=== PATIENT | female | born 1955 | race Caucasian/White ===

== ENCOUNTER 2023-11-05 07:16 | Emergency (ER) | payer OTHER ==
[2023-11-05 07:50] VITALS: BP 126/82; PULSE 108; RESP 18; TEMP 99.2; BMI 23.8
[2023-11-05] MEDS ORDERED: LORazepam 1 MG TABLET ONE (09:09)
[2023-11-05] MEDS ORDERED: ONDANSETRON 4 MG/2 ML VIAL ONE (09:10)
[2023-11-05] MEDS: ONDANSETRON 4 MG/2 ML VIAL IVPUSH ONE (09:34)
[2023-11-05] MEDS: LORazepam 2 MG TABLET PO ONE (09:34)
[2023-11-05] MEDS: LACTATED RINGERS SOLUTION 1,000 ML/1,000 ML INFUS.BAG IV STA (09:34)
[2023-11-05 09:40] LABS: BASO % 0.6 % (0-2.0); EOS % 0.5 % (0-4.5); HEMATOCRIT 42.9 % (32.4-45.2); HEMOGLOBIN 14.7 GM/dL (10.7-15.3); LYMPH % 16.9 % (8-40); MCH 32.9 pg (25.7-33.7); MCHC 34.3 g/dl (32.0-36.0); MEAN CELL VOLUME 95.8 fl (80-96); MEAN PLT VOLUME 7.8 fl (7.5-11.1); PLATELET COUNT 124 10^3/uL (134-434); RBC 4.48 M/mm3 (3.60-5.2); WHITE BLOOD COUNT 4.5 K/mm3 (4.0-10.0)
[2023-11-05 11:05] LABS: PH,URINE 6.5 (5.0-8.0); URINE APPEARANCE CLEAR; URINE BILIRUBIN NEGATIVE (NEGATIVE); URINE COLOR YELLOW; URINE GLUCOSE (UA) NEGATIVE (NEGATIVE); URINE KETONE TRACE (NEGATIVE); URINE LEUK ESTERASE NEGATIVE (NEGATIVE); URINE NITRITE NEGATIVE (NEGATIVE); URINE PROTEIN NEGATIVE (NEGATIVE); URINE UROBILINOGEN 0.2 mg/dL (0.2-1.0)
[2023-11-05 11:48] LABS: POTASSIUM 4.3 mmol/L (3.5-5.1)
[2023-11-05 11:52] LABS: ALBUMIN 3.4 g/dl (3.4-5.0); BLOOD UREA NITROGEN 10.2 mg/dL (7-18); CALCIUM 9.5 mg/dL (8.5-10.1); MAGNESIUM 1.8 mg/dL (1.8-2.4)
[2023-11-05 11:57] LABS: BILIRUBIN,TOTAL 2.2 mg/dL (0.2-1); TOT PROT 7.1 g/dl (6.4-8.2)
[2023-11-05 12:42] LABS: BILIRUBIN,DIRECT 0.8 mg/dL (0.0-0.2)
== END 2023-11-05 15:56 | disposition left against medical advice (07) ==
LOC: JER 07:16
PROC: 3E033GC Introduction of Other Therapeutic Substance into Peripheral Vein, Percutaneous Approach (ICD-10-PCS; principal; 2023-11-05)
PROC: 3E0337Z Introduction of Electrolytic and Water Balance Substance into Peripheral Vein, Percutaneous Approach (ICD-10-PCS; 2023-11-05)
DX: K70.10 Alcoholic hepatitis without ascites (principal); F10.930 Alcohol use, unspecified with withdrawal, uncomplicated; R53.1 Weakness; R53.81 Other malaise; F41.9 Anxiety disorder, unspecified; R25.1 Tremor, unspecified; R63.0 Anorexia; R11.2 Nausea with vomiting, unspecified; R10.31 Right lower quadrant pain
CPT/HCPCS: 36415; 76705-TC; 80053; 81003; 82248; 83690; 83735; 85025; 87086; 99284-25

== ENCOUNTER 2024-04-21 05:16 | Emergency (ER) | payer OTHER ==
[2024-04-21 05:26] VITALS: RESP 18; TEMP 98.1; BMI 23.1
[2024-04-21] MEDS: SODIUM CHLORIDE 0.9% 500 ML INFUS.BAG IV ONE (05:50)
[2024-04-21 06:24] LABS: BASO % 1.2 % (0-2.0); EOS % 1.2 % (0-4.5); HEMATOCRIT 46.6 % (32.4-45.2); HEMOGLOBIN 16.1 GM/dL (10.7-15.3); LYMPH % 30.1 % (8-40); MCH 33.7 pg (25.7-33.7); MCHC 34.6 g/dl (32.0-36.0); MEAN CELL VOLUME 97.5 fl (80-96); MEAN PLT VOLUME 7.3 fl (7.5-11.1); MONO % 11.3 % (3.8-10.2); NEUT % 56.2 % (42.8-82.8); PLATELET COUNT 260 10^3/uL (134-434); RBC 4.78 M/mm3 (3.60-5.2); RDW 13.9 % (11.6-15.6); WHITE BLOOD COUNT 4.1 K/mm3 (4.0-10.0)
[2024-04-21 06:28] VITALS: BP 125/79; PULSE 89
[2024-04-21 06:41] LABS: POTASSIUM 4.5 mmol/L (3.5-5.1)
[2024-04-21 06:42] LABS: CALCIUM 9.1 mg/dL (8.5-10.1)
[2024-04-21 06:43] LABS: ALBUMIN 3.4 g/dl (3.4-5.0); BLOOD UREA NITROGEN 7.4 mg/dL (7-18)
[2024-04-21 06:46] LABS: CREATININE 0.9 mg/dL (0.55-1.3)
[2024-04-21 06:47] LABS: BILIRUBIN,TOTAL 0.9 mg/dL (0.2-1); TOT PROT 7.3 g/dl (6.4-8.2)
[2024-04-21] MEDS ORDERED: chlordiazePOXIDE HCL 25 MG CAPSULE ONE (07:20)
[2024-04-21] MEDS: chlordiazePOXIDE HCL 25 MG CAPSULE PO ONE (07:22)
[2024-04-21 07:26] LABS: MAGNESIUM 2.2 mg/dL (1.8-2.4)
== END 2024-04-21 08:29 | disposition home or self-care (01) ==
LOC: JER 05:16
DX: R53.1 Weakness (principal); F10.129 Alcohol abuse with intoxication, unspecified; R63.0 Anorexia; R25.1 Tremor, unspecified; R11.0 Nausea; Y90.9 Presence of alcohol in blood, level not specified
CPT/HCPCS: 36415; 80053; 83735; 85025; 99283-25

== ENCOUNTER 2024-04-21 10:35 | Inpatient (IN) | payer OTHER ==
[2024-04-21 11:26] VITALS: BMI 23.3
[2024-04-21] MEDS ORDERED: chlordiazePOXIDE HCL 25 MG CAPSULE PO PRN (11:32)
[2024-04-21] MEDS ORDERED: ACETAMINOPHEN 325 MG TABLET (FP) PO PRN (11:35)
[2024-04-21] MEDS ORDERED: POLYETHYLENE GLYCOL (HEALTHYLAX) 3350 17 GM PACKET PO PRN (11:35)
[2024-04-21] MEDS ORDERED: MAG HYDROX/AL HYDROX/SIMETH 30 ML UNIT-DOSE CUP PO PRN (11:35)
[2024-04-21] MEDS ORDERED: guaiFENesin 600 MG TABLET.ER (FP) PO PRN (11:35)
[2024-04-21] MEDS ORDERED: IBUPROFEN 400 MG TABLET (FP) PO PRN (11:35)
[2024-04-21] MEDS ORDERED: DICYCLOMINE HCL 10 MG CAPSULE PO PRN (11:35)
[2024-04-21] MEDS ORDERED: BISMUTH SUBSALICYLATE 524 MG/30 ML PO PRN (11:35)
[2024-04-21] MEDS ORDERED: IBUPROFEN 600 MG TABLET (FP) PO PRN (11:35)
[2024-04-21] MEDS ORDERED: BENZONATATE 200 MG CAPSULE PO PRN (11:35)
[2024-04-21] MEDS ORDERED: P-EPHED 60MG/TRIPROLIDI 2.5MG TABLET PO PRN (11:35)
[2024-04-21] MEDS ORDERED: BENZOCAINE/MENTHOL (CHLORASEPTIC ) LOZENGE MM PRN (11:35)
[2024-04-21] MEDS ORDERED: MAGNESIUM HYDROX 2400MG/30ML ORAL SUSPENSION 30 ML CUP PO PRN (11:35)
[2024-04-21] MEDS ORDERED: ONDANSETRON *ODT* 4 MG TABLET SL PRN (11:35)
[2024-04-21] MEDS: chlordiazePOXIDE HCL 25 MG CAPSULE PO ONE (12:15)
[2024-04-21] MEDS: chlordiazePOXIDE HCL 25 MG CAPSULE PO SCH (17:20)
[2024-04-21] MEDS: hydrOXYzine PAMOATE 25 MG CAPSULE (FP) PO PRN (17:22)
[2024-04-21] MEDS: METHOCARBAMOL 500 MG TABLET PO PRN (22:55)
[2024-04-21] MEDS: MELATONIN 5 MG TABLETS PO SCH (22:55)
[2024-04-21] MEDS: THIAMINE 100 MG TABLET PO SCH (22:55)
[2024-04-22] MEDS: PRENATAL VITAMINS W/ FOLIC ACID TABLET (FP) PO SCH (10:18)
[2024-04-22] MEDS: LOPERAMIDE HCL 2 MG CAPSULE PO PRN (10:59)
[2024-04-22] MEDS ORDERED: LORazepam 1 MG TABLET PO PRN (16:41)
[2024-04-22] MEDS: LORazepam 2 MG TABLET PO SCH (17:31)
[2024-04-22] MEDS: NICOTINE POLACRILEX 2 MG GUM BUC PRN (20:08)
[2024-04-22 21:21] VITALS: BP 100/73; PULSE 112; RESP 18; TEMP 98.2
[2024-04-23] MEDS ORDERED: chlordiazePOXIDE HCL 25 MG CAPSULE PO SCH (05:00)
[2024-04-23] MEDS ORDERED: FLUTICASONE PROP 0.05% 16 GM NASAL SPRAY NS SCH (10:00)
[2024-04-24] MEDS ORDERED: chlordiazePOXIDE HCL 10 MG CAPSULE PO PRN
[2024-04-24] MEDS ORDERED: LORazepam 1 MG TABLET PO SCH (05:00)
[2024-04-24] MEDS ORDERED: chlordiazePOXIDE HCL 10 MG CAPSULE PO SCH (05:00)
[2024-04-25] MEDS ORDERED: chlordiazePOXIDE HCL 10 MG CAPSULE PO SCH (05:00)
[2024-04-25] MEDS ORDERED: LORazepam 0.5 MG TABLET PO SCH (05:00)
[2024-04-26] MEDS ORDERED: LORazepam 0.5 MG TABLET PO ONE (05:00)
[2024-04-26] MEDS ORDERED: chlordiazePOXIDE HCL 10 MG CAPSULE PO ONE (05:00)
== END 2024-04-22 21:23 | disposition left against medical advice (07) | DRG 894 ==
LOC: YASAS 10:35 → Y6N 12:02
PROVIDERS: ADMIT Allergy & Immunology; ATTEND Surgery
PROC: HZ2ZZZZ Detoxification Services for Substance Abuse Treatment (ICD-10-PCS; principal; 2024-04-21)
DX: F10.230 Alcohol dependence with withdrawal, uncomplicated (principal); K70.0 Alcoholic fatty liver
CPT/HCPCS: 80305; 80307

== ENCOUNTER 2024-05-26 04:56 | Emergency (ER) | payer OTHER ==
[2024-05-26 05:03] VITALS: BP 133/86; PULSE 109; RESP 18; TEMP 98.4; BMI 20.5
[2024-05-26] MEDS ORDERED: ONDANSETRON 4 MG/2 ML VIAL ONE (05:57)
[2024-05-26] MEDS: LACTATED RINGERS SOLUTION 1000 ML INFUS.BAG IV ONE (06:30)
[2024-05-26] MEDS: chlordiazePOXIDE HCL 25 MG CAPSULE PO ONE ×2 (06:30→09:53)
[2024-05-26] MEDS: ONDANSETRON 4 MG/2 ML VIAL IVPUSH ONE (06:30)
[2024-05-26] MEDS ORDERED: chlordiazePOXIDE HCL 25 MG CAPSULE ONE ×2 (06:32→09:40)
[2024-05-26 06:44] LABS: BASO % 0.7 % (0-2.0); EOS % 0.2 % (0-4.5); HEMATOCRIT 46.9 % (32.4-45.2); LYMPH % 15.4 % (8-40); MCH 33.3 pg (25.7-33.7); MEAN CELL VOLUME 97.8 fl (80-96); MEAN PLT VOLUME 7.8 fl (7.5-11.1); MONO % 7.6 % (3.8-10.2); NEUT % 76.1 % (42.8-82.8); PLATELET COUNT 153 10^3/uL (134-434); RDW 13.4 % (11.6-15.6); WHITE BLOOD COUNT 5.4 K/mm3 (4.0-10.0)
[2024-05-26 07:00] LABS: POTASSIUM 4.3 mmol/L (3.5-5.1)
[2024-05-26 07:02] LABS: ALBUMIN 3.6 g/dl (3.4-5.0); BLOOD UREA NITROGEN 8.6 mg/dL (7-18); MAGNESIUM 1.9 mg/dL (1.8-2.4)
[2024-05-26 07:06] LABS: CREATININE 0.8 mg/dL (0.55-1.3)
[2024-05-26 07:07] LABS: BILIRUBIN,TOTAL 1.3 mg/dL (0.2-1); TOT PROT 7.5 g/dl (6.4-8.2)
[2024-05-26] MEDS: LACTATED RINGERS SOLUTION 1,000 ML/1,000 ML INFUS.BAG IV STA (08:28)
[2024-05-26] MEDS ORDERED: METOCLOPRAMIDE HCL INJECTION 10 MG/2 ML VIAL ONE (09:40)
[2024-05-26] MEDS ORDERED: FAMOTIDINE 20 MG/50 ML IVPB 20 MG/50 ML MG IVPB ONE (09:40)
[2024-05-26] MEDS: METOCLOPRAMIDE HCL INJECTION 10 MG/2 ML VIAL IVPUSH ONE (09:53)
[2024-05-26] MEDS: FAMOTIDINE 20 MG/50 ML IVPB 20 MG/50 ML MG IVPB ONE (09:53)
[2024-05-26 10:08] LABS: METHADONE, UR NEGATIVE (NEGATIVE); URINE AMPHETAMINES NEGATIVE (NEGATIVE); URINE BARBITURATES NEGATIVE (NEGATIVE)
[2024-05-26 10:09] LABS: OPIATES, URI NEGATIVE (NEGATIVE); PHENCYCLIDINE,URINE NEGATIVE (NEGATIVE)
[2024-05-26 10:13] LABS: COCAINE, UR NEGATIVE (NEGATIVE); URINE BENZODIAZEPINES POSITIVE (NEGATIVE)
== END 2024-05-26 11:00 | disposition home or self-care (01) ==
LOC: JER 04:56
PROC: 3E033GC Introduction of Other Therapeutic Substance into Peripheral Vein, Percutaneous Approach (ICD-10-PCS; principal; 2024-05-26)
PROC: 3E033GC Introduction of Other Therapeutic Substance into Peripheral Vein, Percutaneous Approach (ICD-10-PCS; 2024-05-26)
PROC: 3E033GC Introduction of Other Therapeutic Substance into Peripheral Vein, Percutaneous Approach (ICD-10-PCS; 2024-05-26)
PROC: 3E0337Z Introduction of Electrolytic and Water Balance Substance into Peripheral Vein, Percutaneous Approach (ICD-10-PCS; 2024-05-26)
DX: R11.2 Nausea with vomiting, unspecified (principal); R79.89 Other specified abnormal findings of blood chemistry; F10.29 Alcohol dependence with unspecified alcohol-induced disorder; R19.7 Diarrhea, unspecified; R25.1 Tremor, unspecified; R53.1 Weakness; R45.851 Suicidal ideations
CPT/HCPCS: 36415; 80053; 80307; 83735; 85025; 93005; 93010; 99284-25

== ENCOUNTER 2024-09-28 08:14 | Inpatient (IN) | payer OTHER ==
[2024-09-28 08:37] VITALS: BMI 22.6
[2024-09-28] MEDS ORDERED: diazePAM 5 MG TABLET PO PRN (09:38)
[2024-09-28] MEDS ORDERED: NALOXONE (NARCAN) HCL 4 MG/0.1 ML SPRAY NS PRN (09:46)
[2024-09-28] MEDS ORDERED: ONDANSETRON *ODT* 4 MG TABLET SL PRN (09:46)
[2024-09-28] MEDS ORDERED: ACETAMINOPHEN 325 MG TABLET (FP) PO PRN (09:46)
[2024-09-28] MEDS ORDERED: NICOTINE POLACRILEX 2 MG LOZENGE BC PRN (09:46)
[2024-09-28] MEDS ORDERED: BENZOCAINE/MENTHOL (CHLORASEPTIC ) LOZENGE MM PRN (09:46)
[2024-09-28] MEDS ORDERED: MAG HYDROX/AL HYDROX/SIMETH 30 ML UNIT-DOSE CUP PO PRN (09:46)
[2024-09-28] MEDS ORDERED: MAGNESIUM HYDROX 2400MG/30ML ORAL SUSPENSION 30 ML CUP PO PRN (09:46)
[2024-09-28] MEDS ORDERED: LOPERAMIDE HCL 2 MG CAPSULE PO PRN (09:46)
[2024-09-28] MEDS ORDERED: P-EPHED 60MG/TRIPROLIDI 2.5MG TABLET PO PRN (09:46)
[2024-09-28] MEDS ORDERED: IBUPROFEN 400 MG TABLET (FP) PO PRN (09:46)
[2024-09-28] MEDS ORDERED: BENZONATATE 200 MG CAPSULE PO PRN (09:46)
[2024-09-28] MEDS ORDERED: BISMUTH SUBSALICYLATE 262 MG/15 ML BTL PO PRN (09:46)
[2024-09-28] MEDS ORDERED: IBUPROFEN 600 MG TABLET (FP) PO PRN (09:46)
[2024-09-28] MEDS ORDERED: guaiFENesin 600 MG TABLET.ER (FP) PO PRN (09:46)
[2024-09-28] MEDS ORDERED: NICOTINE POLACRILEX 2 MG GUM BUC PRN (09:46)
[2024-09-28] MEDS ORDERED: POLYETHYLENE GLYCOL (HEALTHYLAX) 3350 17 GM PACKET PO PRN (09:46)
[2024-09-28] MEDS ORDERED: diazePAM 5 MG TABLET ONE (10:54)
[2024-09-28] MEDS ORDERED: propRANOLol HCL 10 MG TABLET ONE (10:54)
[2024-09-28] MEDS ORDERED: PRENATAL VITAMINS W/ FOLIC ACID TABLET (FP) PO ONE (10:54)
[2024-09-28] MEDS: PRENATAL VITAMINS W/ FOLIC ACID TABLET (FP) PO SCH (10:57)
[2024-09-28] MEDS: propRANOLol HCL 10 MG TABLET PO ONE (10:57)
[2024-09-28] MEDS: diazePAM 5 MG TABLET PO SCH (10:58)
[2024-09-28] MEDS: THIAMINE 100 MG TABLET PO SCH (22:07)
[2024-09-28] MEDS: MELATONIN 5 MG TABLETS PO SCH (22:07)
[2024-09-29 12:28] LABS: HEMATOCRIT 42.2 % (32.4-45.2); HEMOGLOBIN 14.4 GM/dL (10.7-15.3); MCH 33.3 pg (25.7-33.7); MCHC 34.2 g/dl (32.0-36.0); MEAN CELL VOLUME 97.4 fl (80-96); MEAN PLT VOLUME 9.4 fl (7.5-11.1); PLATELET COUNT 130 10^3/uL (134-434); RBC 4.33 M/mm3 (3.60-5.2); RDW 13.1 % (11.6-15.6)
[2024-09-29 12:31] LABS: POTASSIUM 4.2 mmol/L (3.5-5.1)
[2024-09-29 12:34] LABS: BLOOD UREA NITROGEN 19.8 mg/dL (7-18); CALCIUM 9.9 mg/dL (8.5-10.1)
[2024-09-29 12:36] LABS: ALBUMIN 3.4 g/dl (3.4-5.0)
[2024-09-29 12:39] LABS: BILIRUBIN,TOTAL 2.8 mg/dL (0.2-1)
[2024-09-29 12:40] LABS: CREATININE 1.4 mg/dL (0.55-1.3)
[2024-09-29] MEDS: FLUTICASONE PROP 0.05% 16 GM NASAL SPRAY NS SCH (22:15)
[2024-09-30] MEDS: diazePAM 5 MG TABLET PO SCH (05:43)
[2024-09-30] MEDS: FLUTICASONE PROP 0.05% 16 GM NASAL SPRAY NS PRN (14:09)
[2024-10-01] MEDS: diazePAM 5 MG TABLET PO SCH (05:32)
[2024-10-01 06:10] VITALS: BP 114/73; PULSE 88; RESP 17; TEMP 97.6
[2024-10-01] MEDS: NALOXONE (NYS OPIOID OVERDOSE PROGRAM) 4 MG/0.1 ML SPRAY NS SCH (09:39)
[2024-10-02] MEDS ORDERED: diazePAM 5 MG TABLET PO ONE (06:00)
== END 2024-10-01 09:06 | disposition home or self-care (01) | DRG 897 ==
LOC: YASAS 08:14 → Y3N 11:09
PROVIDERS: ADMIT Allergy & Immunology; ATTEND Surgery
PROC: HZ2ZZZZ Detoxification Services for Substance Abuse Treatment (ICD-10-PCS; principal; 2024-09-28)
DX: F10.230 Alcohol dependence with withdrawal, uncomplicated (principal); F17.210 Nicotine dependence, cigarettes, uncomplicated; K70.0 Alcoholic fatty liver
CPT/HCPCS: 36415; 80053; 80305; 80307; 85027; 86780